=== PATIENT | female | born 1975 ===

== ENCOUNTER 2020-08-11 14:27 | Outpatient (CLI) | payer OTHER ==
[~2020-08-11] VITALS: Ht 165.1 cm; Wt 93.0 kg
[2020-08-11 15:00] VITALS: BP 132/77
[2020-08-11] MEDS ORDERED: FLOVENT DISKUS50 MCG IH (15:04)
[2020-08-11] MEDS ORDERED: ALBUTEROL SULF8.5 G1 INH (15:04)
[2020-08-11] MEDS ORDERED: LORATADINE10 M1 PO (15:04)
[2020-08-11] MEDS ORDERED: OMEPRAZOLE20 M2 ORAL (15:04)
--- NOTE | 2020-08-11 17:15 | Consultation ---
DATE OF CONSULTATION: 08/11/2020 CONSULTING PHYSICIAN: Manuel Cartre MD CHIEF COMPLAINT: Abdominal pain, history of gastric sleeve surgery, history of abdominal pain, bloating, GERD, nausea, vomiting. PAST MEDICAL HISTORY: 1. GERD. 2. History of anemia. 3. Asthma. 4. Depression. PAST SURGICAL HISTORY: 1. Gastric sleeve in 2010. 2. Tubal ligation. MEDICATIONS: Please see medication reconciliation list. FAMILY HISTORY: Noncontributory. SOCIAL HISTORY: Patient drinks alcohol occasionally. Denies any IV drug abuse. Denies tobacco abuse. ALLERGIES: No known allergies. REVIEW OF SYSTEMS: Positive for abdominal pain, GERD, nausea, bloating. PHYSICAL EXAMINATION: VITAL SIGNS: Temperature 97.6, blood pressure is 143/70, pulse , respirations 20. HEENT: Normocephalic, atraumatic. Sclerae anicteric. NECK: Supple. No evidence of obvious lymphadenopathy. CARDIOVASCULAR: Regular rate and rhythm. Plus S1, S2. LUNGS: Clear to auscultation bilaterally. ABDOMEN: Positive bowel sounds. Soft and nontender. No rebound. No guarding. No peritoneal sign. EXTREMITIES: No cyanosis, no clubbing, no edema. ASSESSMENT AND PLAN: This is a 44-year-old female with history of gastric sleeve surgery in 2010, currently on PPI with recurrent symptoms of vomiting and abdominal pain. Plan to get her scheduled for endoscopy as soon as the authorization is obtained. Manuel Carter M.D. DR: JETT JOB#: [id number] CC:
== END 2020-08-11 16:00 | disposition home or self-care (01) ==
LOC: PAN 14:27
DX: R10.9 Unspecified abdominal pain (principal); Z98.84 Bariatric surgery status; R14.0 Abdominal distension (gaseous); K21.9 Gastro-esophageal reflux disease without esophagitis; R11.2 Nausea with vomiting, unspecified; F32.9 Major depressive disorder, single episode, unspecified
CPT/HCPCS: G0463

== ENCOUNTER → 2020-11-10 | Outpatient (CLI) | payer OTHER ==
[~2020-11-10] MED LIST: ALBUTEROL SULF8.5 G1 INH; FLOVENT DISKUS50 MCG IH; LORATADINE10 M1 PO; OMEPRAZOLE20 M2 ORAL
[2020-11-10 14:38] VITALS: BP 129/73
--- NOTE | 2020-11-14 16:39 | General Progress Note ---
Subjective ROS Limited/Unobtainable: Yes Allergies: Coded Allergies: No Known Allergies (Unverified , 08/11/20) Objective General Appearance: alert EENT: normal ENT inspection Neck: supple Cardiovascular: normal rate Respiratory/Chest: lungs clear Abdomen: normal bowel sounds, non tender, soft Extremities: non-tender Assessment/Plan Assessment/Plan: s/p EGd GERD esophagitis ppi bid baclofen RTC 3 months Manuel Carter MD Nov 14, 2020 16:39
== END | disposition home or self-care (01) ==
LOC: PAN 14:16
DX: R10.9 Unspecified abdominal pain (principal)
CPT/HCPCS: 99212